=== PATIENT | male | born 1960 | race Hispanic/Latino ===

== ENCOUNTER 2017-03-03 19:26 | Inpatient (IN) | payer MEDICAID, OTHER ==
[2017-03-03 19:40] VITALS: O2SAT 98
[2017-03-03 21:31] LABS: MEAN CELL VOLUME 93.3 fl (80.0-94.0); MEAN CORPUSCULAR HEMOGLOBIN 31.5 pg (27.0-31.0); MEAN CORPUSCULAR HGB CONC 33.7 g/dL (33.0-37.0); RBC 4.45 Mil/uL (4.40-5.90); RED CELL DISTRIBUTION WIDTH 12.3 % (11.5-14.5); WHITE BLOOD COUNT 8.9 K/uL (4.8-10.8)
[2017-03-03 21:40] LABS: ALB/GLOB RATIO 1.2 (1.0-2.1); ALBUMIN 4.3 g/dL (3.5-5.0); ALT/SGPT 47 U/L (21-72); AST/SGOT 38 U/L (17-59); BLOOD UREA NITROGEN 19 mg/dl (9-20); CALCIUM 9.2 mg/dL (8.4-10.2); GFR AFRICAN-AMERICAN > 60; GFR NON-AFRICAN AMERICAN > 60
[2017-03-03 21:44] LABS: URINE BILIRUBIN NEGATIVE (NEGATIVE); URINE BLOOD NEGATIVE (NEGATIVE); URINE CLARITY CLEAR (Clear); URINE COLOR STRAW (YELLOW); URINE GLUCOSE (UA) NEG (Normal); URINE LEUKOCYTE ESTERASE NEG Leu/uL (Negative); URINE NITRATE NEGATIVE (NEGATIVE); URINE PROTEIN NEGATIVE (NEGATIVE); URINE UROBILINOGEN 0.2-1.0 mg/dL (0.2-1.0)
[2017-03-03 21:49] LABS: BARBITURATES, UR NEGATIVE (NEGATIVE); BENZODIAZEPINES, UR NEGATIVE (NEGATIVE); OPIATES, UR POSITIVE (NEGATIVE); PHENCYCLIDINE, UR NEGATIVE (NEGATIVE)
--- NOTE | 2017-03-03 23:18 | ED PDOC ---
HPI: Psych/Substance Abuse Time Seen by Provider: 03/03/17 19:36 Chief Complaint (Nursing): Psychiatric Evaluation Chief Complaint (Provider): Depression for a few months, no SI/HI History Per: Patient History/Exam Limitations: no limitations Onset/Duration Of Symptoms: Days Current Symptoms Are (Timing): Still Present Modifying Factor(s): Alcohol (Drank earlier today ) Past Medical History Reviewed: Historical Data, Nursing Documentation, Vital Signs Vital Signs: Last Vital Signs Temp 98.1 F 03/03/17 19:37 Pulse 90 03/03/17 19:37 Resp 18 03/03/17 19:37 BP 139/81 03/03/17 19:37 Pulse Ox 98 03/03/17 19:37 - Medical History PMH: Anxiety, Depression, Schizophrenia, Sexually Transmitted Disease Denies: Diabetes, Hepatitis, HIV (wants to be tested), HTN, Chronic Kidney Disease, Seizures - Surgical History Surgical History: No Surg Hx - Family History Family History: States: Unknown Family Hx, Diabetes, Hypertension - Social History Current smoker - smoking cessation education provided: Yes Alcohol: Occasional Drugs: Opiates - Immunization History Hx Tetanus Toxoid Vaccination: No Hx Influenza Vaccination: No Hx Pneumococcal Vaccination: No - Allergies Allergies/Adverse Reactions: Allergies Allergy/AdvReac Type Severity Reaction Status Date / Time No Known Allergies Allergy Verified 02/12/17 15:06 Review of Systems ROS Statement: Except As Marked, All Systems Reviewed And Found Negative Psych: Positive for: Depression. Negative for: Suicidal ideation Physical Exam - Reviewed Nursing Documentation Reviewed: Yes Vital Signs Reviewed: Yes - Physical Exam Appears: Positive for: Well, Non-toxic, No Acute Distress Head Exam: Positive for: ATRAUMATIC, NORMAL INSPECTION, NORMOCEPHALIC Skin: Positive for: Normal Color, Warm, DRY Eye Exam: Positive for: Normal appearance ENT: Positive for: Normal ENT Inspection Neck: Positive for: Normal, Painless ROM Cardiovascular/Chest: Positive for: Regular Rate, Rhythm Respiratory: Positive for: CNT, Normal Breath Sounds Gastrointestinal/Abdominal: Positive for: Normal Exam, Bowel Sounds, Soft Back: Positive for: Normal Inspection Extremity: Positive for: Normal ROM Neurologic/Psych: Positive for: Alert, Oriented - Laboratory Results Result Diagrams: 03/03/17 21:05 03/03/17 21:05 - ECG O2 Sat by Pulse Oximetry: 98 Disposition - Clinical Impression Clinical Impression: Major depressive disorder, single episode, unspecified, Opiate abuse, episodic - Patient ED Disposition Is Patient to be Admitted: Yes - Disposition Disposition Time: 23:18 Condition: STABLE - POA Present On Arrival: None
[2017-03-04] MEDS ORDERED: Magnesium Hydroxide Susp 30 ml UD PO PRN (00:46)
[2017-03-04] MEDS ORDERED: DiphenhydrAMINE 50 mg/ml Inj IM PRN (00:46)
[2017-03-04] MEDS ORDERED: Alum-Mag Hydrox-Simethicone Susp (30 mL) PO PRN (00:46)
[2017-03-04 06:53] LABS: T4 4.69 ug/dl (5.5-11.0)
--- NOTE | 2017-03-04 11:07 | PCM.PSYCH ---
Initial Psychiatric Evaluation - Initial Psychiatric Evaluation Type of Admission: Voluntary Legal Status: Capacity Chief Complaint (in patient's own words): i have no energy Patient's Reaction to Hospitalization: cooperative History of Present Illness and Precipitating Events: 57 yo male with history of alcohol and opioid dependence. he was referred to er by his daughter who was concerned with his change in mood/behaviors. pt states he's been feeling down for the last few months. he reports he has no energy to get up to go to work, feels no enjoyment for things, cannot focus or concentrate , feels helpless and sad most of the day. he reported some suicidal thoughts prior to admission, but today he denies suicidal thoughts. he denies any delusional thoughts, auditory or visual hallucinations. he reports he is using 5bags of heroin by injection and drinking 10 beers a day. his last use was day prior to admission. pt states he is working at a [employer]. he reports having a place to stay. he wants to be referred back to [facility] Current Medications: Active Medications Generic Name Dose Route Start Last Admin Trade Name Thomas PRN Reason Stop Dose Admin Acetaminophen 650 mg 03/04/17 00:46 Tylenol 325mg Tab PO Q4 PRN Pain, moderate (4-7) Al Hydrox/Mg Hydrox/Simethicone 30 ml 03/04/17 00:46 Maalox Plus 30 Ml PO Q4 PRN Dyspepsia Chlordiazepoxide 50 mg 03/04/17 10:30 Librium PO Q8 JV Chlordiazepoxide 5 mg 03/04/17 10:23 Librium PO Q8 PRN alcohol withdrawal Clonidine HCl 0.1 mg 03/04/17 10:20 Catapres PO Q8 JV Cyclobenzaprine HCl 10 mg 03/04/17 10:22 Flexeril PO TID PRN Muscle spasm Diphenhydramine HCl 50 mg 03/04/17 00:46 Benadryl IM Q6 PRN Extrapyramidal S/S Unable PO Diphenhydramine HCl 50 mg 03/04/17 00:46 Benadryl PO Q6 PRN Extrapyramidal Symptoms Haloperidol 5 mg 03/04/17 00:46 Haldol PO Q4 PRN Agitation Haloperidol Lactate 5 mg 03/04/17 00:46 Haldol IM Q4 PRN Agitation, Unable to Take PO Loperamide HCl 2 mg 03/04/17 10:23 Imodium PO QID PRN Loose stools Lorazepam 2 mg 03/04/17 00:46 Ativan IM Q4 PRN Anxiety/Agitation,Unable PO Magnesium Hydroxide 30 ml 03/04/17 00:46 Milk Of Magnesia PO HS PRN Constipation Ondansetron HCl 4 mg 03/04/17 10:21 Zofran Tab PO Q4 PRN Nausea/Vomiting Sertraline HCl 50 mg 03/05/17 09:00 Zoloft PO DAILY JV Trazodone HCl 50 mg 03/04/17 22:00 Desyrel PO HS JV has been off meds. last on zoloft and trazodone Past Psychiatric History - Past Psychiatric History Previous Treatment History: Inpatient Prior Professional Help: [facility] sep History of Abuse: denies History of ETOH/Drug Use: as per hpi. smokes 1 pack a day of cigarettes History of Family Illness: denies Pertinent Medical Hx (Current Medical&Sleep Prob, Allergies): Allergies Allergy/AdvReac Type Severity Reaction Status Date / Time No Known Allergies Allergy Verified 02/12/17 15:06 Review of Systems - Psychiatric Psychiatric: As Per HPI Mental Status Examination - Personal Presentation Personal Presentation: Looks stated age - Affect Affect: Constricted - Motor Activity Motor Activity: Calm - Reliability in Providing Information Reliability in Providing Information: Good - Speech Speech: Organized - Mood Mood: Depressed - Formal Thought Process Formal Thought Process: No Impairment - Obsessions/Compulsions Obsessions: No Compulsions: No - Cognitive Functions Orientation: Person, Place, Situation, Time Sensorium: Alert Attention/Concentration: Attentive Abstract Thinking: [place] Estimate of Intelligence: Average Judgement: Intact, as evidence by: Insight regarding need for hospitalization Memory: Recent intact, as evidence by: Ability to recall events of the day, Remote intact, as evidenced by: Abilit to recall sig. life events - Risk Risk: Suicidal (denies current thoughts/plan or intent), Withdrawal - Strength & Assets Inventory Strength & Assets Inventory: Family support, Employment history, Life experience DSM 5 DX - DSM 5 DSM 5 Diagnosis: opioid dependence alcohol dependence major depression recurrent moderate - Recommended/Plan of Treatment Treatment Recommendations and Plan of Treatment: admit to [facility] for safety and observation gather collateral information provide supportive therapy adjust medications- librium for etoh withdrawal. restart zoloft and trazodone. pt agrees with plan hospitalist consult disposition planning- pt wants outpt treatment and states he needs to work so is rejecting offer to refer to inpt rehab. Projected ELOS: 3-5 days Prognosis: fair - Smoking Cessation Smoking Cessation Initiated: Yes
[2017-03-04 16:08] VITALS: RESP 18; TEMP 98.1
--- NOTE | 2017-03-04 17:59 | CARD ---
APPROVED REPORT EKG Measurement Heart [id number] MD [id number] <Conclusion> Normal sinus rhythm Normal ECG
[2017-03-05] MEDS ORDERED: Albuterol 0.083% Inhal Sol (2.5 mg/3 mL) UD INH STA (02:17)
[2017-03-05 09:11] VITALS: BP 129/66; PULSE 75
--- NOTE | 2017-03-05 12:19 | PCM.PYCHDC ---
Mental Status Examination - Mental Status Examination Orientation: Person, Place, Situation, Time Memory: Intact Mood: Neutral Affect: Broad Speech: Appropriate Attention: WNL Concentration: WNL Association: WNL Fund of Knowledge: WNL Formal Thought Process: No Impairment Description of patient's judgement and insight: fair Psychotic Thoughts and Behaviors: denies a/v hallucinations Suicidal Ideation: No Current Homicidal Ideation?: No Discharge Summary - Discharge Note Reason for Hospitalization: cooperative Psychiatric History (includes Medical, Family, Personal Hx): history of substance abuse, depression. Laboratory Data: Abnormal Lab Results 03/04/17 03/04/17 05:05 05:10 Hemoglobin A1c 5.6 RPR Nonreactive Consultations:: List each consultation separately and include: 1. Reason for request. 2. Findings. 3. Follow-up Consultations: seen by hospitalist Summary of Hospital Course include:: 1. Description of specific treatment plan utilized for patients during their course of treatmen. 2. Summarize the time- course for resolution of acute symptoms and/or regressed behaviors. 3. Describe issues identified and worked on during hospitalization. 4. Describe medication utilized. 5. Describe medical problems identified and treated. 6. Reassessment of suicide risk Summary of Hospital Course: 57 yo male with history of alcohol and opioid dependence. he was referred to er by his daughter who was concerned with his change in mood/behaviors. pt states he's been feeling down for the last few months. he reports he has no energy to get up to go to work, feels no enjoyment for things, cannot focus or concentrate , feels helpless and sad most of the day. he reported some suicidal thoughts prior to admission, but today he denies suicidal thoughts. he denies any delusional thoughts, auditory or visual hallucinations. he reports he is using 5bags of heroin by injection and drinking 10 beers a day. his last use was day prior to admission. 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 he reports having a place to stay. he wants to be referred back to [facility] hospital course: as above. pt signed 48 hour notice. was in treatment team and states he did not want any f/u medications. pt was denying any suicidal or homicidal thoughts. he was goal directed and future oriented. pt discharged and states he will f/u with [facility]. no prescriptions given - Final Diagnosis (DSM 5) Condition upon Discharge: STABLE DSM 5: opioid dependence alcoyhyol dependence major depression recurrent Disposition: HOME/ ROUTINE Follow-up Treatment Plan: follow up with aftercare as directed attend aa meetings daily do not use alcohol, tobacco or other illicit substances call 911 if any suicidal or homicidal thoughts - Smoking Cessation Smoking Cessation Medication prescribed: No Reason for not providing: dcelines - Antipsychotic Medications Pt discharged on 2 or more routine antipsychotic medications: No
== END 2017-03-05 11:33 | disposition home or self-care (01) | DRG 895 ==
LOC: H.ER 19:26 → H.ERHOLD 23:38 → H.PSYCH 03-04 00:34
PROVIDERS: ADMIT Psychiatry & Neurology Psychiatry; ATTEND Psychiatry & Neurology Psychiatry
PROC: HZ59ZZZ Individual Psychotherapy for Substance Abuse Treatment, Supportive (ICD-10-PCS; principal; 2017-03-03)
DX: F11.20 Opioid dependence, uncomplicated (principal); F33.9 Major depressive disorder, recurrent, unspecified; F10.20 Alcohol dependence, uncomplicated; Y90.4 Blood alcohol level of 80-99 mg/100 ml; F17.200 Nicotine dependence, unspecified, uncomplicated

== ENCOUNTER 2017-06-28 08:55 | Emergency (ER) | payer MEDICAID ==
[2017-06-28 09:01] VITALS: BMI 27.1
[2017-06-28 09:03] VITALS: BP 145/85; PULSE 76; RESP 17; TEMP 99; O2SAT 98
--- NOTE | 2017-06-28 10:39 | ED PDOC ---
Upper Extremity Pain/Injury Time Seen by Provider: 06/28/17 10:30 Chief Complaint (Nursing): Upper Extremity Problem/Injury Chief Complaint (Provider): right arm pain History Per: Patient (57 y/o male h/o IVDA here with right elbow swelling. Admits use of needle in region. Denies any fevers or chills. Does not believe needles is remaining in region.) Past Medical History Reviewed: Historical Data, Nursing Documentation, Vital Signs Vital Signs: Last Vital Signs Temp 99 F 06/28/17 09:01 Pulse 76 06/28/17 09:01 Resp 17 06/28/17 09:01 BP 145/85 06/28/17 09:01 Pulse Ox 98 06/28/17 09:01 - Medical History PMH: Anxiety, Depression, Schizophrenia, Sexually Transmitted Disease Denies: Diabetes, Hepatitis, HIV (wants to be tested), HTN, Chronic Kidney Disease, Seizures - Family History Family History: States: Unknown Family Hx, Diabetes, Hypertension - Immunization History Hx Tetanus Toxoid Vaccination: No Hx Influenza Vaccination: No Hx Pneumococcal Vaccination: No - Home Medications Home Medications: Ambulatory Orders Medication Instructions Recorded Aluminum Hydroxide/Magnesium 30 ml PO Q4 PRN 03/05/17 [Maalox Plus 30 ml] Cephalexin [Keflex] 500 mg PO QID #28 capsule 06/28/17 Sulfamethoxazole/Trimethoprim 2 tab PO BID #28 tab 06/28/17 [Bactrim DS 800 mg-160 mg] - Allergies Allergies/Adverse Reactions: Allergies Allergy/AdvReac Type Severity Reaction Status Date / Time No Known Allergies Allergy Verified 02/12/17 15:06 Review of Systems ROS Statement: Except As Marked, All Systems Reviewed And Found Negative Physical Exam - Reviewed Nursing Documentation Reviewed: Yes Vital Signs Reviewed: Yes - Physical Exam Appears: Positive for: Well, Non-toxic, No Acute Distress Head Exam: Positive for: ATRAUMATIC, NORMAL INSPECTION, NORMOCEPHALIC Skin: Positive for: Normal Color, Warm, DRY Eye Exam: Positive for: EOMI, Normal appearance, PERRL ENT: Positive for: Normal ENT Inspection Neck: Positive for: Normal, Painless ROM Cardiovascular/Chest: Positive for: Regular Rate, Rhythm Respiratory: Positive for: CNT, Normal Breath Sounds Gastrointestinal/Abdominal: Positive for: Normal Exam, Bowel Sounds, Soft Back: Positive for: Normal Inspection Extremity: Positive for: Normal ROM, Other (5.5 cm induration/redness right antecubital region ? fluctuance noted ) Neurologic/Psych: Positive for: Alert, Oriented - Laboratory Results Result Diagrams: 06/28/17 10:30 06/28/17 10:30 - ECG O2 Sat by Pulse Oximetry: 98 - Progress ED Course And Treament: tdap 0.5 ml IM x 1 dose duplex antecubital region FINDINGS: In the right antecubital fossa there is a heterogeneous ovoid mass/ structure measuring 3.8 x 1.2 x 2.6 cm. Punctate echogenicities within this collection demonstrate no posterior shadowing but nevertheless may represent gas bubbles. This is surrounded by only mild hypervascularity on color Doppler interrogation. Findings are suggestive of a phlegmon or early abscess. Followup advised. No definite drainable collection. No additional abnormality identified. IMPRESSION: Phlegmon versus early abscess right antecubital fossa. Possible tiny gas bubbles within collection. Mild peripheral hypervascularity. Follow-up advised. No additional abnormality. xry of forearm: IMPRESSION: No radiopaque foreign body identified. Vancomycin 1.35 gm iv x 1 dose bc x2 lactate 2.[address] garcia. I attempted to aspirate but no drainage at this time. Patient does not want to stay inpatient for iv antibiotics. Will give rx keflex /bactrim and d/w return to ED 24 hours for evaluation of cellulitis Disposition - Clinical Impression Clinical Impression: Cellulitis of arm - Patient ED Disposition Is Patient to be Admitted: No - Disposition Referrals: FAMILY PROVIDER,NO [Primary Care Provider] - Disposition Time: 12:42 Condition: FAIR Additional Instructions: RETURN TOMORROW AFTERNOON FOR EVALUATION OF CELLULITIS Prescriptions: Cephalexin [Keflex] 500 mg PO QID #28 capsule Sulfamethoxazole/Trimethoprim [Bactrim DS 800 mg-160 mg] 2 tab PO BID #28 tab Instructions: Cellulitis (DC) Forms: [employer] (Malagasy)
[2017-06-28] MEDS ORDERED: Tetanus/Diphtheria Toxoids 0.5 ml Syringe IM ONE (10:42)
[2017-06-28] MEDS ORDERED: Vancomycin 1 g Inj ONE (10:42)
[2017-06-28 11:03] LABS: BASO % 0.4 % (0.0-2.0); EOS # 0.1 K/uL (0.0-0.7); EOS % 0.5 % (0.0-4.0); HEMATOCRIT 39.8 % (35.0-51.0); LYMPH # 1.1 K/uL (1.0-4.3); LYMPH % 10.3 % (20.0-40.0); MEAN CELL VOLUME 90.5 fl (80.0-94.0); MEAN CORPUSCULAR HEMOGLOBIN 31.3 pg (27.0-31.0); MEAN CORPUSCULAR HGB CONC 34.5 g/dL (33.0-37.0); MEAN PLATELET VOLUME 8.4 fl (7.2-11.7); MONO # 0.6 K/uL (0.0-0.8); MONO % 5.7 % (0.0-10.0); NEUT # 9.2 K/uL (1.8-7.0); NEUT % 83.1 % (50.0-75.0); RED CELL DISTRIBUTION WIDTH 12.2 % (11.5-14.5)
[2017-06-28 11:03] LABS: VENOUS BLOOD GAS BASE EXCESS 7.6 mmol/L (0.0-2.0); VENOUS BLOOD GAS PCO2 46 mmHg (40-60); VENOUS BLOOD PH 7.46 (7.32-7.43)
--- NOTE | 2017-06-28 11:10 | RAD ---
PROCEDURE: Radiographs of the right elbow. HISTORY: r/o foreign body COMPARISON: No prior. FINDINGS: BONES: Normal. No fracture. 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 No articular erosion. SOFT TISSUES: No radiopaque foreign body identified. JOINT EFFUSION: None. OTHER FINDINGS: None. IMPRESSION: No radiopaque foreign body identified.
[2017-06-28 11:14] LABS: BLOOD UREA NITROGEN 12 mg/dl (9-20); CALCIUM 9.1 mg/dL (8.4-10.2); CARBON DIOXIDE 28 mmol/L (22-30); CHLORIDE 102 mmol/L (98-107); GFR AFRICAN-AMERICAN > 60; GLUCOSE,RANDOM 140 mg/dL (75-110); POTASSIUM 4.3 MMOL/L (3.6-5.0); SODIUM 139 mmol/l (132-148)
[2017-06-28] MEDS ORDERED: Sodium Chloride 0.9% 1,000 ML IV STA (11:59)
--- NOTE | 2017-06-28 12:27 | US ---
PROCEDURE: Ultrasound soft tissue right upper extremity HISTORY: evaluate for abcess right antecubital region. COMPARISON: Not available TECHNIQUE: Ultrasound of the right antecubital fossa was performed utilizing a linear array high-frequency transducer. FINDINGS: In the right antecubital fossa there is a heterogeneous ovoid mass/ structure measuring 3.8 x 1.2 x 2.6 cm. Punctate echogenicities within this collection demonstrate no posterior shadowing but nevertheless may represent gas bubbles. This is surrounded by only mild hypervascularity on color Doppler interrogation. Findings are suggestive of a phlegmon or early abscess. Followup advised. No definite drainable collection. No additional abnormality identified. IMPRESSION: Phlegmon versus early abscess right antecubital fossa. Possible tiny gas bubbles within collection. Mild peripheral hypervascularity. Follow-up advised. No additional abnormality.
== END 2017-06-28 13:15 | disposition home or self-care (01) ==
LOC: SUPCPDRO 08:55 → H.ER 08:55
DX: L03.113 Cellulitis of right upper limb (principal); F20.9 Schizophrenia, unspecified; F32.9 Major depressive disorder, single episode, unspecified; F41.9 Anxiety disorder, unspecified; F19.10 Other psychoactive substance abuse, uncomplicated
CPT/HCPCS: 73070; 76882; 80048; 82803; 85025; 87040; 90471; 90715; 96374; 99283; J1885

== ENCOUNTER 2018-04-20 11:45 | Emergency (ER) | payer SELFPAY ==
[2018-04-20 11:45] VITALS: BMI 27.1
[2018-04-20] MEDS ORDERED: PROPARACAINE/FLUORESCEIN SOD 100 DROP/5 ML BOTTLE OS STA (12:27)
--- NOTE | 2018-04-20 12:28 | ED PDOC ---
HPI: Eye Injury/Pain Time Seen by Provider: 04/20/18 12:25 Chief Complaint (Nursing): Eye Problem Chief Complaint (Provider): Right Eye Pain History Per: Patient History/Exam Limitations: no limitations Onset/Duration Of Symptoms: Hrs Current Symptoms Are (Timing): Still Present Additional Complaint(s): 58 year old male presents to the ED complaining of right eye pain since this morning. Patient reports he woke up this morning and was unable to open his right eye due to pain and irritation. He states eye feels better when there is no light. No headache. Pt denies change in vision. PT states he has a lot of clear fluid from the right eye. PMD: none Past Medical History Reviewed: Historical Data, Nursing Documentation, Vital Signs Vital Signs: Last Vital Signs Temp 98.8 F 04/20/18 11:54 Pulse 74 04/20/18 11:54 Resp 20 04/20/18 11:54 BP 163/91 H 04/20/18 11:54 Pulse Ox 96 04/20/18 11:54 - Medical History PMH: Anxiety, Depression, Schizophrenia, Sexually Transmitted Disease Denies: Diabetes, Hepatitis, HIV (wants to be tested), HTN, Chronic Kidney Disease, Seizures - Surgical History Surgical History: No Surg Hx - Family History Family History: States: Unknown Family Hx, Diabetes, Hypertension - Social History Current smoker - smoking cessation education provided: Yes (< 10 cigarettes daily) Alcohol: Social Drugs: Opiates - Immunization History Hx Tetanus Toxoid Vaccination: No Hx Influenza Vaccination: No Hx Pneumococcal Vaccination: No - Home Medications Home Medications: Ambulatory Orders Medication Instructions Recorded Aluminum Hydroxide/Magnesium 30 ml PO Q4 PRN 03/05/17 [Maalox Plus 30 ml] Cephalexin [Keflex] 500 mg PO QID #28 capsule 06/28/17 Sulfamethoxazole/Trimethoprim 2 tab PO BID #28 tab 06/28/17 [Bactrim DS 800 mg-160 mg] Polymyxin/Trimethoprim Sulfate 1 drop XX Q6H 10 Days bottle 04/20/18 [Polytrim Ophth Soln] - Allergies Allergies/Adverse Reactions: Allergies Allergy/AdvReac Type Severity Reaction Status Date / Time No Known Allergies Allergy Verified 02/12/17 15:06 Review of Systems ROS Statement: Except As Marked, All Systems Reviewed And Found Negative Eyes: Positive for: Pain (right). Negative for: Vision Change Physical Exam - Reviewed Nursing Documentation Reviewed: Yes Vital Signs Reviewed: Yes - Physical Exam Appears: Positive for: Non-toxic, No Acute Distress Head Exam: Positive for: ATRAUMATIC, NORMOCEPHALIC Skin: Positive for: Normal Color, Warm, Dry Eye Exam: Positive for: EOMI, PERRL, Conjunctival injection (Right eye), Other ( Erythema with no foreign body and corneal abrasion of the right eye). Negative for: Scleral icterus Neck: Positive for: Normal Cardiovascular/Chest: Negative for: Bradycardia, Tachycardia Respiratory: Negative for: Respiratory Distress Extremity: Positive for: Normal ROM Neurologic/Psych: Positive for: Alert, Oriented. Negative for: Motor/Sensory Deficits - ECG O2 Sat by Pulse Oximetry: 96 (RA) Pulse Ox Interpretation: Normal Medical Decision Making Medical Decision Making: Initial Impression: Right eye pain Initial Plan: Fluorescein 1 drop OS Scribe Attestation: Documented by Rafi Ellington acting as a scribe for Erica MAN. Provider Scribe Attestation: All medical record entries made by the Scribe were at my direction and personally dictated by me. I have reviewed the chart and agree that the record accurately reflects my personal performance of the history, physical exam, medical decision making, and the department course for this patient. I have also personally directed, reviewed, and agree with the discharge instructions and disposition. Disposition - Clinical Impression Clinical Impression: Conjunctivitis - Patient ED Disposition Is Patient to be Admitted: No Counseled Patient/Family Regarding: Diagnosis, Need For Followup, Rx Given - Disposition Referrals: Avinash Betts MD [Staff Provider] - Disposition: Routine/Home Disposition Time: 13:18 Condition: GOOD Additional Instructions: Please follow-up with Dr. Betts tomorrow. Prescriptions: Polymyxin/Trimethoprim Sulfate [Polytrim Ophth Soln] 1 drop XX Q6H 10 Days bottle Instructions: Conjunctivitis ([place]) Forms: [facility] (Belarusian), [facility] School/Work Excuse
[2018-04-20 13:53] VITALS: BP 138/83; PULSE 73; RESP 16; TEMP 98.1; O2SAT 100
== END 2018-04-20 13:31 | disposition home or self-care (01) ==
LOC: H.ER 11:45
DX: H10.9 Unspecified conjunctivitis (principal); F17.210 Nicotine dependence, cigarettes, uncomplicated; Z86.59 Personal history of other mental and behavioral disorders